=== PATIENT | female | born 1965 | race Caucasian/White ===

== ENCOUNTER → 2016-10-08 | Outpatient (CLI) | payer MEDICARE, MEDICAID ==
[~2016-10-08] MED LIST: ASP81TEC PO; CATHETER FLUSH 10 ML SYR IV PRN; CETI5TAB6 PO; CYAN500T44 PO; IOHEXOL 350 MG/ML 100 ML (OMNIPAQUE 350) VIAL IV ONE; LISI5TAB PO; METO25TA PO; MULT1CAP27 PO; NS 100 ML (IVPB) BAG IV ONE; OMEG-9 PO; UBID200C PO; [UNRECOGNIZED DRUG - CODE] MC; [UNRECOGNIZED DRUG - CODE] PO
--- NOTE | 2016-10-08 10:32 | Diagnostic Imaging Report ---
EXAMINATION: CT angiogram of the renal arteries. INDICATION: Uncontrolled hypertension. TECHNIQUE: Thin section axial images were performed with MIP coronal reconstructions performed in the abdomen after administration of 80 mL of Omnipaque 350 intravenous contrast. FINDINGS: The lung bases appear clear. The abdominal aorta is normal in caliber. The celiac trunk and SMA and the STEPHANIE are all patent. The renal arteries are patent with no significant plaque or stenosis. Both kidneys have normal parenchymal appearance with no hydronephrosis and with symmetric parenchymal enhancement seen. The liver, the gallbladder, the spleen, the pancreas and the adrenal glands appear unremarkable. Visualized portions of the distal colon demonstrate diverticulosis with no evidence of diverticulitis. The osseous structures appear grossly unremarkable. IMPRESSION: No significant stenosis in the renal artery seen. Dictated by: Dictated on workstation # [id number]
== END ==
LOC: RAD 09:10
PROVIDERS: ATTEND Family Medicine
DX: I10 Essential (primary) hypertension (principal)
CPT/HCPCS: 74175

== ENCOUNTER → 2017-01-09 | Outpatient (CLI) | payer MEDICARE, MEDICAID ==
[~2017-01-09] MED LIST changes: -CATHETER FLUSH 10 ML SYR IV PRN; -IOHEXOL 350 MG/ML 100 ML (OMNIPAQUE 350) VIAL IV ONE; -NS 100 ML (IVPB) BAG IV ONE
--- NOTE | 2017-01-14 08:14 | ECHOCARDIOGRAPHY REPORT ---
DATE OF SERVICE: 01/09/2017 PROCEDURE: TWO-DIMENSIONAL ECHOCARDIOGRAM ORDERING PROVIDER: Nicole Turner APRN PRIMARY PHYSICIAN: Dr. Brennan. CLINICAL DIAGNOSES: 1. Hypertension. 2. History of mitral valve repair. 3. Mitral stenosis. MEASUREMENTS: Aortic root 3. Left atrium 5.4 Left ventricular diameter diastolic 5.6. IVS thickness, diastolic 1.1. LVPW thickness is 0.8. DESCRIPTION: Two-dimensional echocardiography shows moderate to moderately severely enlargement of the left atrium and mild enlargement of the left ventricle. Global left ventricular systolic function is well preserved. Left ventricular ejection fraction is approximately 50 to 55%. Aortic, mitral and tricuspid valve leaflets show good leaflet excursion. 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 Doppler imaging shows mild mitral and tricuspid regurgitation. Pulmonary artery systolic pressure is estimated to be approximately 40 mmHg. There is no evidence of any significant intracardiac shunt on this transthoracic echocardiographic study. The inferior vena cava is of normal size and exhibits normal inspiratory collapse. Peak pressure gradient across the mitral valve is approximately 7 mmHg with mean gradient of 2 mmHg and the mitral valve area is calculated to be 2.1 cm2. CONCLUSIONS: 1. Well preserved global left systolic function with ejection fraction of 50 to 55%. 2. Mild mitral and tricuspid regurgitation. 3. Mild mitral stenosis with a valve area approximately 2.1 cm2. 4. No evidence of any significant intracardiac shunt. 5. Moderate to moderately severely enlargement of the left atrium. 6. Mild enlargement of the left ventricle. 7. Pulmonary artery systolic pressure is estimated at approximately 40 mmHg. Job ID: [id number] DocumentID: [id number] Dictated Date: 01/13/2017 17:34:11 Distributor Advertising Material Date: 01/13/2017 21:13:44 Dictated By: ALEJANDRO BARBA MD, MA, FACP, FACC,
== END ==
LOC: CARD 01-07 13:40
PROVIDERS: ATTEND Nurse Practitioner Family
DX: I10 Essential (primary) hypertension (principal); I05.0 Rheumatic mitral stenosis; Z98.890 Other specified postprocedural states
CPT/HCPCS: 93306

== ENCOUNTER → 2019-09-06 | Outpatient (CLI) | payer MEDICARE, MEDICAID | LOC: CARD 11:59 | PROVIDERS: ATTEND Nurse Practitioner Family | DX: I05.0 Rheumatic mitral stenosis (principal); I10 Essential (primary) hypertension; I65.23 Occlusion and stenosis of bilateral carotid arteries; Z98.890 Other specified postprocedural states | CPT/HCPCS: 93306 ==

== ENCOUNTER → 2021-08-07 | Outpatient (CLI) | payer MEDICARE, MEDICAID | LOC: CARD 11:18 | PROVIDERS: ATTEND Nurse Practitioner Family | DX: I51.7 Cardiomegaly (principal); Z98.890 Other specified postprocedural states | CPT/HCPCS: 93306 ==